=== PATIENT | male | born 1990 | race African-American/Black ===

== ENCOUNTER 2016-08-25 19:18 | Emergency (ER) | payer OTHER ==
[2016-08-25 19:29] VITALS: BP 129/77
--- NOTE | 2016-08-25 20:19 | ED Physician Documentation ---
PD HPI LOWER EXT INJURY - Stated complaint Stated Complaint: LT KNEE PX - Chief complaint Chief Complaint: Ext Problem - History obtained from History obtained from: Patient - History of Present Illness PD HPI LOW EXT INJURY LOCATION: Left (Stepped into a hole today and twisted his left knee and has lateral left knee pain only when walking or twisting the knee. He is relatively pain-free at rest. No prior problems with that knee.) Review of Systems Constitutional: reports: Reviewed and negative Throat: reports: Reviewed and negative Cardiac: reports: Reviewed and negative Respiratory: reports: Reviewed and negative PD PAST MEDICAL HISTORY - Present Medications Home Medications: Ambulatory Orders Medication Instructions Recorded Confirmed No Known Home Medications [No 08/25/16 08/25/16 Known Home Medications] - Allergies Allergies/Adverse Reactions: Allergies Allergy/AdvReac Type Severity Reaction Status Date / Time No Known Drug Allergies Allergy Verified 08/25/16 19:29 PD ED PE NORMAL - Vitals Vital signs reviewed: Yes - General General: Alert and oriented X 3, No acute distress - Extremities Extremities: Other (Left. knee is nontender and without effusion, he does have a lot of pain with grind testing but ligamentous testing is intact.) - Neuro Neuro: Alert and oriented X 3, Normal speech Results - Vitals Vitals: Vital Signs - 24 hr 08/25/16 19:25 Temperature 36.7 C Heart Rate 89 Respiratory 16 Rate Blood Pressure 129/77 O2 Saturation 100 Oxygen O2 Source Room air - Rads (name of study) L knee 3v Radiology: EMP read contemporaneously (NAD) PD MEDICAL DECISION MAKING - ED course ED course: Discussed certainly could be meniscla tear given exam/mechanism. Xray normal. In immobilizer and f/u advised. Departure - Departure Disposition: 01 Home, Self Care Clinical Impression: Left knee sprain Qualifiers: Encounter type: initial encounter Involved ligament of knee: unspecified ligament Qualified Code(s): S83.92XA - Sprain of unspecified site of left knee, initial encounter Condition: Good Record reviewed to determine appropriate education?: Yes Instructions: ED Meniscal Injury Knee Poss Comments: Keep the splint on when you are up and around. 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 Discharge Date/Time: 08/25/16 20:32
--- NOTE | 2016-08-25 22:42 | XRAY Preliminary Report ---
Exam: XR Knee 3 View LT IMPRESSION: Normal knee radiography. [facility] SITE ID: [id number]
--- NOTE | 2016-08-25 22:45 | XRAY Report ---
EXAM: LEFT KNEE RADIOGRAPHY EXAM DATE: 08/25/2016 07:48 PM. CLINICAL HISTORY: Knee inj. COMPARISON: None. TECHNIQUE: 3 views. FINDINGS: Bones: Normal. No fractures or bone lesions. Joints: Normal. No effusion. No subluxations. Soft Tissues: Normal. No soft tissue swelling. IMPRESSION: Normal knee radiography. [facility] Referring Provider Line: [phone] SITE ID: [id number]
== END 2016-08-25 20:32 | disposition home or self-care (01) ==
LOC: ED 19:18
DX: S83.92XA Sprain of unspecified site of left knee, initial encounter (principal); W18.42XA Slipping, tripping and stumbling without falling due to stepping into hole or opening, initial encounter
CPT/HCPCS: 99283